=== PATIENT | male | born 1975 | race Caucasian/White ===

== ENCOUNTER 2017-09-27 15:16 | Inpatient (IN) | payer BC ==
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
[2017-09-27] MEDS ORDERED: MAG HYDROX/AL HYDROX/SIMETH 30 ML UDCUP PO PRN (16:34)
[2017-09-27] MEDS ORDERED: ACETAMINOPHEN 325 MG TAB PO PRN (16:34)
[2017-09-27] MEDS ORDERED: SUMAtriptan 25 MG TAB PO PRN (16:42)
--- NOTE | 2017-09-27 16:50 | PDOREHIP ---
Admission [facility] - Admission - 3 Day Assessment Period Admission Date/Day 1: 09/27/17 Day 2: 09/28/17 Day 3: 09/29/17 - Active Diagnoses Comorbidities and Co-existing Conditions at Admission: 26319. None of the Above - Skin Conditions Unhealed Pressure Ulcer (1 or more/Stage 1 or >)-Admission: 0. No
[2017-09-27] MEDS: AMITRIPTYLINE HCL 50 MG TAB PO SCH (20:08)
[2017-09-27] MEDS: levETIRAcetam 500 MG TAB PO SCH (20:08)
[2017-09-27] MEDS ORDERED: AMITRIPTYLINE HCL 25 MG TAB PO SCH (21:00)
[2017-09-28] MEDS: levETIRAcetam 500 MG TAB PO SCH ×2 (08:21→20:02)
[2017-09-28] MEDS ORDERED: ENOXAPARIN 40 MG/0.4 ML SYR SC SCH (09:00)
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
[2017-09-28] MEDS: AMITRIPTYLINE HCL 50 MG TAB PO SCH (20:02)
[2017-09-29] MEDS: levETIRAcetam 500 MG TAB PO SCH (08:16)
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
--- NOTE | 2017-09-29 14:13 | PDOREHIP ---
Admission [facility] - Admission - 3 Day Assessment Period Admission Date/Day 1: 09/27/17 Day 2: 09/28/17 Day 3: 09/29/17 Discharge [facility] - Discharge Skin Conditions Unhealed Pressure Ulcer (1 or more/Stage 1 or >)-Discharge: 0. No
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
[2017-09-29] MEDS: AMITRIPTYLINE HCL 50 MG TAB PO SCH (20:51)
[2017-09-29] MEDS: levETIRAcetam 250 MG TAB PO SCH (20:51)
[2017-09-30 07:21] VITALS: BP 106/68
[2017-09-30] MEDS: levETIRAcetam 250 MG TAB PO SCH (07:21)
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
== END 2017-09-30 14:34 | disposition home or self-care (01) | DRG 945 ==
LOC: BREH 15:26
PROVIDERS: ADMIT Physical Medicine & Rehabilitation; ATTEND Physical Medicine & Rehabilitation
PROC: F08Z2ZZ Grooming/Personal Hygiene Treatment (ICD-10-PCS; principal; 2017-09-27)
PROC: F07Z8ZZ Transfer Training Treatment (ICD-10-PCS; principal; 2017-09-27)
PROC: F08Z1ZZ Dressing Techniques Treatment (ICD-10-PCS; principal; 2017-09-27)
DX: S06.9X0D Unspecified intracranial injury without loss of consciousness, subsequent encounter (principal); V19.9XXD Pedal cyclist (driver) (passenger) injured in unspecified traffic accident, subsequent encounter; G43.909 Migraine, unspecified, not intractable, without status migrainosus; G44.319 Acute post-traumatic headache, not intractable; R56.1 Post traumatic seizures
CPT/HCPCS: 92507-GN; 92523-GN; 97110-GO; 97110-GP; 97112-GP; 97116-GP; 97161-GP; 97165-GO; 97530-GO; 97535-GO; 97537-GO; G0515-GO